=== PATIENT | male | born 1965 | race Caucasian/White ===

== ENCOUNTER 2021-10-20 16:09 | Emergency (ER) | payer OTHER ==
[~2021-10-20] VITALS: Ht 182.9 cm; Wt 86.4 kg
[2021-10-20] MEDS ORDERED: ZESTRIL20 M1 PO (16:22)
[2021-10-20] MEDS ORDERED: NEURONTIN600 M1 PO (16:23)
[2021-10-20 16:56] VITALS: BP 157/102
== END 2021-10-20 16:58 | disposition home or self-care (01) ==
LOC: ED 16:09
DX: F10.10 Alcohol abuse, uncomplicated (principal)
CPT/HCPCS: J2560

== ENCOUNTER 2021-10-23 01:05 | Observation (INO) | payer OTHER ==
[~2021-10-23] VITALS: Ht 172.7 cm; Wt 81.4 kg
[~2021-10-23 01:05] MED LIST: NEURONTIN600 M1 PO; ZESTRIL20 M1 PO
[2021-10-23] MEDS ORDERED: LIBRIUM 25M25 MG/CAP PO (01:17)
[2021-10-23] MEDS ORDERED: HALOPERIDOL10 M1 PO (01:18)
[2021-10-23 02:35] LABS: BASO # 0.03 K/mm3 (0.02-0.10); EOS # 0.02 K/mm3 (0.04-0.40); EOS % 0.4 % (0.0-4.0); HEMATOCRIT 40.4 % (42.0-52.0); HEMOGLOBIN 14.1 g/dL (13.5-18.0); LYMPH# 0.64 K/mm3 (1.50-4.00); MEAN CELL VOLUME 95 fl (78-100); MEAN CORPUSCULAR HEMOGLOBIN 33 pg (27-31); MEAN CORPUSCULAR HGB CONC 35 g/dL (33-37); MEAN PLATELET VOLUME 10.3 fl (7.4-10.4); MONO # 0.68 K/mm3 (0.20-0.80); NEU # 3.37 K/mm3 (1.40-6.50); PLATELET COUNT 115 K/mm3 (130-400); RED BLOOD COUNT 4.24 M/mm3 (4.20-5.60); RED CELL DISTRIBUTION WIDTH 13.7 % (11.5-14.5); WHITE BLOOD COUNT 4.8 K/mm3 (4.8-10.8)
[2021-10-23 02:41] LABS: ALBUMIN 4.9 g/dL (3.5-5.0)
[2021-10-23 02:42] LABS: POTASSIUM 3.1 mmol/L (3.5-5.1)
[2021-10-23 02:43] LABS: CALCIUM 11.1 mg/dL (8.3-10.5)
[2021-10-23 02:46] LABS: TOTAL BILIRUBIN 1.5 mg/dL (0.2-1.2)
[2021-10-23 02:50] LABS: MAGNESIUM 1.81 mg/dL (1.60-2.60)
[2021-10-23 12:33] VITALS: BP 169/117
[2021-10-23 13:47] VITALS: BP 127/84
--- NOTE | 2021-10-23 15:05 | NUR ---
Patient restless and confused. Continues to be tachycardic. Assisted to the bed. Unsteady gait noted. Ativan 2mg IV given now per Dr. Hannah.
--- NOTE | 2021-10-23 15:10 | NUR ---
Dr. Hananh at bedside.
--- NOTE | 2021-10-23 15:28 | NUR ---
Patient up to bedside commode, x3 assist. Has difficulty following commands. States "I think i'm Rikki."
--- NOTE | 2021-10-23 15:38 | NUR ---
Patient pulled IV out of right forearm. IV found laying on the floor on the left side of the bed in a puddle of blood. Patient denies removing IV. Incontinent of urine. Bed linens changed and incontient cares provided. Patient is confused. Restless. Has difficulty remembering/following directions. Dr. Hannah notified.
[2021-10-23 16:00] VITALS: BP 156/96
--- NOTE | 2021-10-23 16:24 | NUR ---
IV fluids d/c at this time per Dr. Hannah verbal order.
[2021-10-23] MEDS ORDERED: PANTOPRAZOLE SO40 MG PO (17:15)
[2021-10-23] MEDS ORDERED: FOLIC ACID1 MG PO (17:15)
[2021-10-23] MEDS ORDERED: B-1100 M1 PO (17:16)
[2021-10-23] MEDS ORDERED: MAALOX MAX + ANT1 ML PO (17:16)
[2021-10-23] MEDS ORDERED: Theragran PO (17:16)
[2021-10-23] MEDS ORDERED: ATIVAN2 MG/1 ML IV (17:17)
[2021-10-23 17:29] VITALS: BP 156/100
--- NOTE | 2021-10-23 17:55 | NUR ---
Spoke with Kenn, housekeeping worker at [facility], patient transferring to ICU #8. Per Kenn, patient is not to transfer until after shift change at 1900 "because they've had a rough afternoon." Requested covid test. Orders for covid test obtained, lab notified. Dr. Hannah notified of delay of transfer.
--- NOTE | 2021-10-23 18:15 | NUR ---
Patient requires higher level of care at [facility] ICU. Unable to get consent for transfer due to patient being impaired.
--- NOTE | 2021-10-23 18:47 | NUR ---
Attempted to call nurse to nurse report. Spoke with Anayeli, states they will call back after shift change to get report.
--- NOTE | 2021-10-23 18:59 | NUR ---
[facility] notified of transfer.
--- NOTE | 2021-10-23 19:23 | NUR ---
Report called to SERAFIN Kim at [facility]
--- NOTE | 2021-10-23 19:36 | NUR ---
Patient out of facility via stretcher with EMS. INT to left AC. Patient states that he does not want his next of kin/person to notify [facility] of an emergency contacted regarding his transfer to higher level of care. Patient has his ex Marti listed. Repeats that he does not want Marti notified.
--- NOTE | 2021-10-23 19:36 | NUR ---
Tele dc'd upon dismissal.
== END 2021-10-23 19:36 | disposition short-term general hospital (02) ==
LOC: ED 01:05 → MED/SURG 11:57
PROVIDERS: ADMIT Family Medicine
DX: F10.139 Alcohol abuse with withdrawal, unspecified (principal); I10 Essential (primary) hypertension; E87.6 Hypokalemia; E86.9 Volume depletion, unspecified; Z20.822 Contact with and (suspected) exposure to COVID-19; Z79.899 Other long term (current) drug therapy
CPT/HCPCS: G0378; J1650; J2060; J3411; J3475; J3480; J3490; J7030